=== PATIENT | male | born 1990 | race Caucasian/White ===

== ENCOUNTER 2018-03-31 19:39 | Emergency (ER) | payer OTHER ==
[~2018-03-31] VITALS: Ht 182.9 cm; Wt 76.2 kg
[~2018-03-31 19:39] MED LIST: CEPH500 PO; Keflex500 MG PO; Norco 5-325 Ta1 EACH PO; Percocet 5-3251 EACH PO; Ultram50 MG PO
[2018-03-31] MEDS ORDERED: IBUP800 PO (21:01)
[2018-03-31] MEDS ORDERED: CRUTCH4 XX (21:02)
== END 2018-03-31 21:26 | disposition home or self-care (01) ==
LOC: ER 19:39
DX: S93.401A Sprain of unspecified ligament of right ankle, initial encounter (principal); B35.3 Tinea pedis; F17.210 Nicotine dependence, cigarettes, uncomplicated; W19.XXXA Unspecified fall, initial encounter; Y92.828 Other wilderness area as the place of occurrence of the external cause
CPT/HCPCS: 29515; 73610; 96372; 99283; J1885; L1906

== ENCOUNTER 2023-09-17 21:08 | Inpatient (IN) | payer OTHER ==
[~2023-09-17] VITALS: Ht 175.3 cm; Wt 81.8 kg
[~2023-09-17 21:08] MED LIST changes: +CRUTCH4 XX; +IBUP800 PO
[2023-09-17 21:37] LABS: BASOPHILS ABSOLUTE AUTO 0.05 K/mm3 (0.00-0.23); BASOPHILS PERCENT AUTO 1 % (0-2); EOSINOPHILS PERCENT AUTO 1 % (0-6); Hematocrit 45.1 % (37.0-53.0); Hemoglobin 15.1 g/dL (13.5-17.5); IMMATURE GRAN ABSOLUTE AUTO 0.05 K/mm3 (0.00-0.10); IMMATURE GRAN PERCENT AUTO 1 % (0-1); LYMPHOCYTES ABSOLUTE AUTO 2.75 K/mm3 (0.84-5.20); LYMPHOCYTES PERCENT AUTO 36 % (21-46); MONOCYTES ABSOLUTE AUTO 0.73 K/mm3 (0.16-1.47); MONOCYTES PERCENT AUTO 10 % (4-13); Mean Corpuscular HGB 30.8 pg (26.0-34.0); Mean Corpuscular HGB Conc 33.5 g/dL (31.5-36.5); Mean Corpuscular Volume 92 fL (80-100); Mean Platelet Volume 8.8 fL (9.1-12.4); NEUTROPHILS ABSOLUTE AUTO 4.01 K/mm3 (1.96-9.15); NEUTROPHILS PERCENT AUTO 52 % (41-73); Platelet Count 285 K/mm3 (150-400); RDW Coefficient Variation 15.3 % (11.7-14.2); RDW Standard Deviation 51.2 fL (35.1-46.3); Red Blood Cell Count 4.91 M/mm3 (4.30-5.90); White Blood Cell Count 7.69 K/mm3 (4.00-11.30)
[2023-09-17 22:05] LABS: Albumin, Blood 3.3 g/dL (3.4-5.0); Albumin/Globulin Ratio 0.9 (0.8-1.8); Bilirubin, Total 0.3 mg/dL (0.1-1.0); Bun/Creatinine Ratio 9.4 (12.0-20.0); Calcium, Blood 7.6 mg/dL (8.5-10.1); Creatinine, Blood 0.85 mg/dL (0.60-1.20); Globulin, Blood 3.7 g/dL (2.2-4.0); Potassium, Blood 3.9 mmol/L (3.5-5.5)
[2023-09-17 22:15] LABS: International Normalized Ratio 1.05
[2023-09-17 22:40] LABS: Source, Urine Voided
[2023-09-17 22:43] LABS: Bilirubin, Urine Neg (Neg); Blood, Urine Neg (Neg); Glucose Qualitative, Urine Neg (Neg); Ketones, Urine Neg (Neg); Leukocyte Esterase, Urine Neg (Neg); Nitrite, Urine Neg (Neg); Protein, Urine Neg (Neg); Urobilinogen, Urine NORM (Normal)
[2023-09-17 22:50] LABS: Appearance, Urine Clear (Clear); Color, Urine Yellow (P-Yellow)
[2023-09-17 23:02] LABS: U Amphetamine Screen Not Detected; U Barbituate Screen Not Detected; U Benzodiazapine Screen Not Detected; U Buprenorphine Screen Not Detected; U Cannabinoids Screen Not Detected; U Cocaine Screen Not Detected; U Methadone Screen Not Detected; U Methamphetamine Screen Not Detected; U Opiates Screen Not Detected; U Oxycodone Screen Not Detected; U Phencyclidine Screen Not Detected
[2023-09-18] VITALS (7 sets, daily range): BP systolic 110–142; BP diastolic 79–98
--- NOTE | 2023-09-18 01:45 | NUR ---
ADMISSION REPORT RECIEVED FROM ER NURSE. PATIENT ARRIVED TO PCU. SLID SELF OVER TO PCU BED WITH MINIMAL ASSISTANCE. BP STABLE, TELE READING SR 80-90s. ON RA WITH SPO2 >90%. ORIENTED x4, ABLE TO RECALL EVENTS LEADING UP TO ADMISSION. PUPILS VERY SENSITIVE TO PEN LIGHT BUT ROOM LIGHTS SEEM OK TO PATIENT. STRONG BIRD SITTER BILATERALLY. AMBLE TO AMBULATE INTO BATHROOM ON ADMISSION WITH ADEQUATE OUTPUT. ORIENTED TO ROOM AND CALL LIGHT SYSTEM.
[2023-09-18 04:46] LABS: BASOPHILS ABSOLUTE AUTO 0.03 K/mm3 (0.00-0.23); BASOPHILS PERCENT AUTO 0 % (0-2); EOSINOPHILS ABSOLUTE AUTO 0.03 K/mm3 (0.00-0.68); EOSINOPHILS PERCENT AUTO 0 % (0-6); Hematocrit 44.4 % (37.0-53.0); Hemoglobin 15.1 g/dL (13.5-17.5); IMMATURE GRAN ABSOLUTE AUTO 0.04 K/mm3 (0.00-0.10); IMMATURE GRAN PERCENT AUTO 0 % (0-1); LYMPHOCYTES ABSOLUTE AUTO 1.26 K/mm3 (0.84-5.20); LYMPHOCYTES PERCENT AUTO 13 % (21-46); MONOCYTES ABSOLUTE AUTO 0.95 K/mm3 (0.16-1.47); MONOCYTES PERCENT AUTO 10 % (4-13); Mean Corpuscular Volume 91 fL (80-100); Mean Platelet Volume 8.9 fL (9.1-12.4); NEUTROPHILS ABSOLUTE AUTO 7.23 K/mm3 (1.96-9.15); NEUTROPHILS PERCENT AUTO 76 % (41-73); Platelet Count 273 K/mm3 (150-400); RDW Coefficient Variation 15.1 % (11.7-14.2); RDW Standard Deviation 50.3 fL (35.1-46.3); Red Blood Cell Count 4.87 M/mm3 (4.30-5.90); White Blood Cell Count 9.54 K/mm3 (4.00-11.30)
[2023-09-18 05:14] LABS: Albumin, Blood 3.2 g/dL (3.4-5.0); Albumin/Globulin Ratio 0.9 (0.8-1.8); Bilirubin, Total 0.5 mg/dL (0.1-1.0); Bun/Creatinine Ratio 10.2 (12.0-20.0); Calcium, Blood 7.9 mg/dL (8.5-10.1); Creatinine, Blood 0.79 mg/dL (0.60-1.20); Globulin, Blood 3.6 g/dL (2.2-4.0); Magnesium, Blood 2.3 mg/dL (1.6-2.4); Potassium, Blood 4.1 mmol/L (3.5-5.5); Total Protein, Blood 6.8 g/dL (6.4-8.2)
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
--- NOTE | 2023-09-18 23:22 | NUR ---
THIS RN ASSESSED WITHDRAWAL WHILE OBTAINING MIDNIGHT VITAL SIGNS. CIWA SCORE OF 6. PATIENT REPORTS FEELING SOME NAUSEA, ESPECIALLY WITH AMBULATION. NO VOMITING. REPORTS MILD HEADACHE. CONTINUING TO REPORT MILD TREMORS, REMAINS NON-VISIBLE OR FELT. PATIENT STATING, "I THINK IT MAY BE TIME FOR SOME MEDICATION." THIS RN ADMINISTERED PO LIBRIUM PER EMAR. VS REMAIN STABLE. CALL LIGHT IN REACH.
[2023-09-19 04:40] VITALS: BP 135/98
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
[2023-09-19 08:29] VITALS: BP 130/98
--- NOTE | 2023-09-19 09:18 | NUR ---
AM NOTE Pt alert, oriented x4; anxious, cooperative with care. Pt reports feeling restless and feels slight tremor. Pt up with sba in room. Reports pain to chest, will monitor. Pt denies sob, dizziness and numb/tingling. Tele sinus 60's, bp wnl. Spo2 >90% on ra, breathing even and unlabored. Abd soft, nontender, bt + t/o. CIWA 6 this am. Other vss. No other acute changes noted. Will continue to monitor.
[2023-09-19 16:11] VITALS: BP 136/99
--- NOTE | 2023-09-19 17:45 | NUR ---
Shift Summary No acute changes noted. CIWA <8 t/o shift. Medical without tele. VSS. Will continue to monitor.
[2023-09-19 20:20] VITALS: BP 133/97
--- NOTE | 2023-09-19 21:40 | NUR ---
ASSUMPTION OF CARE AFTER RECEIVING REPORT FROM ARMANDO SIMPSON, THIS RN ASSUMED CARE AT APPROX 1915. PATIENT ALERT, SITTING ON SIDE OF BED. IS ALERT AND ORIENTED X4. CIWA OBTAINED, MEASURED AT 2. EXPERIENCES EPISODES OF INCREASED RESTLESSNESS, WILL AMBULATE IN HALLWAY NEEDED. VSS. MEDICAL STATUS, NO TELEMETRY. BP STABLE. ON ROOM AIR, SATS >92%. INDEPENDENT IN ROOM. COMMUNICATES NEEDS EFFECTIVELY. TOOK A SHOWER AT START OF SHIFT. VOIDING. CALL LIGHT IN REACH.
[2023-09-20 04:48] VITALS: BP 131/82
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
[2023-09-20 07:45] VITALS: BP 121/83
[2023-09-20] MEDS ORDERED: HYDR1TAB94 PO (11:07)
[2023-09-20] MEDS ORDERED: MULVITA PO (11:11)
--- NOTE | 2023-09-20 12:12 | NUR ---
PT DISCHARGED TO HOME WITH DISCHARGE ORDERS, PRESCRIPTION SENT TO [facility], PROVIDED PT HARD SCRIPT FOR [place]CO. VITALS HAS BEEN STABLE, NO COMPLAINS OTHER THAN BEING SWEATY WHICH PROVIDER IS AWARE. PT AMBULATORY IN THE ROOM. CIWA AT5 THIS MORNING. ALERT AND ORIENTED PLEASANT AND COOPERATIVE WITH CARES. ALL BELONGINGS SENT WITH THE PT, AMBULATORY FOR DISCHARGE ACCOMPANIED BY [facility].
== END 2023-09-20 11:54 | disposition home or self-care (01) | DRG 84 ==
LOC: ER 21:08 → PCU 21:09
PROVIDERS: Emergency Medicine; Family Medicine; ADMIT Hospitalist
PROC: HZ2ZZZZ Detoxification Services for Substance Abuse Treatment (ICD-10-PCS; principal; 2023-09-17)
DX: S06.5XAA Traumatic subdural hemorrhage with loss of consciousness status unknown, initial encounter (principal); F10.20 Alcohol dependence, uncomplicated; S30.1XXA Contusion of abdominal wall, initial encounter; V68.5XXA Driver of heavy transport vehicle injured in noncollision transport accident in traffic accident, initial encounter; M79.18 Myalgia, other site; R40.2362 Coma scale, best motor response, obeys commands, at arrival to emergency department; R40.2142 Coma scale, eyes open, spontaneous, at arrival to emergency department; R40.2242 Coma scale, best verbal response, confused conversation, at arrival to emergency department; I10 Essential (primary) hypertension; Y90.8 Blood alcohol level of 240 mg/100 ml or more
CPT/HCPCS: 36415; 70450; 71260; 72125; 73070; 73562-RT; 74177; 80053; 81003; 83690; 83735; 85025; 85610; 96374; 96376; 99285-25; A9270; G0008; G0378; J1885; J7030; L0160; Q2036; Q9967